=== PATIENT | female | born 1965 | race Caucasian/White ===

== ENCOUNTER → 2016-08-18 | Outpatient (CLI) | payer OTHER ==
[~2016-08-18] MED LIST: CONJ0.453 PO; FLUT27.5 NAE; MULT-506 PO; OLOP0.6S NAE
--- NOTE | 2016-08-18 13:59 | MAMMOGRAPHY REPORT ---
BILATERAL DIGITAL DIAGNOSTIC MAMMOGRAM TOMOSYNTHESIS WITH CAD: 08/18/2016 CLINICAL HISTORY: Interval follow-up of left breast calcifications. TECHNIQUE: Breast tomosynthesis in addition to standard 2D mammography was performed. Current study was also evaluated with a Computer Aided Detection (CAD) system. Bilateral CC and MLO 2-D and franci synthesis images and spot magnification left CC and ML views were obtained. COMPARISON: Comparison is made to exams dated: 11/13/2014 mammogram, 10/31/2014 mammogram, 10/30/2013 m ammogram, 09/27/2012 mammogram, 09/22/2011 mammogram, and 07/29/2010 mammogram - [facility]. BREAST COMPOSITION: The tissue of both breasts is heterogeneously dense, which may obscure small ma sses. FINDINGS: Spot magnification views of the left breast demonstrate a small 2 mm cluster of faint daria cifications in the left lateral breast, best seen on the cc view. The calcifications are stable com pared to spot magnification views dated November 2014, and were also present on prior exams including t he 2012 exam. Given the long-term stability, the calcifications are considered benign. The remainder of both breasts are stable compared to prior exams, without suspicious masses, calcifi cations, or areas of architectural distortion noted. IMPRESSION: ACR BI-RADS CATEGORY 2: BENIGN Small cluster of calcifications in the left lateral breast is stable dating back to 2012, and is con sidered benign. There is no mammographic evidence of malignancy in either breast. A 1 year screenin g mammogram is recommended. The patient has been verbally notified of the results. Approximately 10% of breast cancers are not detected with mammography. A negative mammographic repor t should not delay biopsy if a clinically suggestive mass is present. Purnima Galvez M.D. ah/:08/18/2016 11:36:56 Edging Catcher: Jessy LANDA(R)(M), [facility] letter sent: Normal 1/2 BI-RADS Code: ACR BI-RADS Category 2: Benign
== END | disposition home or self-care (01) ==
LOC: C.MAMM 09:11
PROVIDERS: ATTEND Family Medicine
DX: R92.1 Mammographic calcification found on diagnostic imaging of breast (principal)

== ENCOUNTER → 2017-02-01 | Outpatient (CLI) | payer OTHER ==
[2017-02-01 17:20] LABS: BASO % 1.7 %; BASO ABS # 0.11 K/uL (0-0.2); COMPLETE YES; EOS % 8.3 %; HEMATOCRIT 42.4 % (37-47); IG% 0.2 %; LYMPH % 34.6 %; LYMPH ABS # 2.25 K/uL (1.2-3.4); MEAN CELL VOLUME 93.2 fL (80-100); MEAN CORPUSCULAR HEMOGLOBIN 30.3 pg (25-34); MEAN CORPUSCULAR HGB CONC 32.5 g/dl (32-36); MEAN PLATELET VOLUME 12.1 fL (7.4-10.4); NEUT % 49.2 %; PLATELET COUNT 341 K/uL (130-400); RED BLOOD COUNT 4.55 M/uL (4.2-5.4)
[2017-02-01 17:28] LABS: ALT/SGPT 22 U/L (12-78); BLOOD UREA NITROGEN 14 mg/dl (7-18); BUN/CREATININE RATIO 14.2 (10-20); CALCIUM 9.1 mg/dl (8.5-10.1); CARBON DIOXIDE 28 mmol/L (21-32); CHLORIDE 107 mmol/L (98-107); CHOLESTEROL 238 mg/dl (0-200); GLUCOSE 85 mg/dl (70-99); MAGNESIUM 2.5 mg/dl (1.8-2.4); SODIUM 140 mmol/L (136-145); TRIGLYCERIDES 144 mg/dl (0-150); VERY LOW DENSITY LIPOPROT CALC 29 mg/dl
[2017-02-01 17:37] LABS: ALB/GLOB RATIO 1.1 (0.9-2); ALKALINE PHOSPHATASE 45 U/L (45-117); AST/SGOT 13 U/L (15-37); CHOLESTEROL/HDL RATIO 3.4; HDL CHOLESTEROL 70 mg/dl; LDL CHOLESTEROL CALCULATED 139 mg/dl
[2017-02-03 16:17] LABS: QUANTIF TB AG-NIL <0.00 IU/ML; QUANTIFERON NIL 0.08 IU/ML
--- NOTE | 2017-02-07 10:35 | CODING QUERY MEDICAL NECESSITY ---
CQSUPPORTING DIAGNOSIS NEEDED A supporting diagnosis is required for the test/procedure performed on this patient in order for us to be reimbursed by the patient's insurance. Please provide a supporting diagnosis for the following test/procedure listed below next to the test name along with your signature. *If there is no additional diagnosis for this patient that would support the following test/procedure please document that below next to the test/procedure. Test(s)/Procedure(s) that require a supporting diagnosis: DOS 02/01/17 VITAMIN D TEST Provider Signature: Date: Thank you Lea Barrett Health Information Management Once completed, please kindly fax back to [phone] For questions please call [phone]
== END | disposition home or self-care (01) ==
LOC: C.LABBC 14:48
PROVIDERS: ATTEND Nurse Practitioner Adult Health
DX: Z00.00 Encounter for general adult medical examination without abnormal findings (principal); R53.83 Other fatigue

== ENCOUNTER → 2017-06-21 | Outpatient (CLI) | payer OTHER ==
--- NOTE | 2017-06-21 21:00 | DIAGNOSTIC IMAGING REPORT ---
CERVICAL WITHOUT CONTRAST CLINICAL HISTORY: 51 years-old Female presenting with chronic neck pain, cervical radiculopathy for 2 years, hands, arms, and wrist falling asleep left greater than right. TECHNIQUE: Multisequence, multiplanar MR imaging of the cervical spine was performed without the use of intravenous contrast. IV contrast: None. COMPARISON: None. FINDINGS: Localizer images: Unremarkable. Normal cervical lordosis. Vertebral bodies maintain normal height, alignment, and bone marrow signal intensity. Intervertebral disc desiccation noted diffusely in the cervical spine with accompanying disc osteophyte complexes at nearly every level to varying degrees. Degenerative changes further detailed below: C2-3 no significant neural foraminal or spinal canal stenosis. C3-4: Left uncovertebral hypertrophy and disc osteophyte complex result in mild left neural foraminal narrowing. No significant spinal canal narrowing. C4-5: No significant neural foraminal or spinal canal narrowing. C5-6: Disc osteophyte complex and bilateral uncovertebral hypertrophy result in moderate bilateral neural foraminal narrowing. Mild effacement of the ventral thecal sac without evidence of contouring of the spinal cord. C6-7: Disc osteophyte complex and uncovertebral hypertrophy result in moderate bilateral neural foraminal narrowing and mild effacement of the ventral thecal sac without evidence of contouring of the spinal cord. C7-T1: No significant neural foraminal or spinal canal narrowing. Cervical spinal cord maintains normal morphology and signal intensity. Craniocervical junction normal. No epidural collection. Paraspinal soft tissues remarkable for an 11 mm T2 hyperintense lesion in the region of the right lobe of the thyroid, possibly colloid cyst. No paraspinal muscular edema. IMPRESSION: 1. Multilevel degenerative changes of the cervical spine with varying degrees of neural foraminal narrowing most significant at C5-6 and C6-7, further detailed above. No significant spinal canal stenosis. 2. 11 mm T2 hyperintense lesion in the region of the right lobe of the thyroid, possibly colloid cyst. If there is clinical concern, further evaluation with ultrasound to be obtained on a nonurgent basis. Electronically signed by: Adithya Tate M.D. 06/21/2017 8:59 PM Dictated Date/Time: 06/21/2017 8:52 PM
== END | disposition home or self-care (01) ==
LOC: C.MRI 19:32
PROVIDERS: ATTEND Nurse Practitioner Adult Health
DX: M54.12 Radiculopathy, cervical region (principal); R93.8 Abnormal findings on diagnostic imaging of other specified body structures

== ENCOUNTER 2017-07-08 18:51 | Emergency (ER) | payer OTHER ==
[~2017-07-08] VITALS: Ht 162.6 cm; Wt 60.5 kg
[2017-07-08 18:59] VITALS: TEMP 36.3; Ht 162.6 cm; Wt 60.5 kg
[2017-07-08] MEDS ORDERED: AMOX875T PO (19:24)
--- NOTE | 2017-07-08 19:25 | EMERGENCY ROOM VISIT NOTE ---
History First contact with patient: 19:03 Chief Complaint: BITE Stated Complaint: CAT BITE R EAR History of Present Illness The patient is a 51 year old female who presents to the Emergency Room with complaints of a Bite to her right ear. The patient reports that she was petting the neighbors cat when the cat became spooked and bit her right ear. She states that the cat was otherwise acting very normally. She believes the cat's vaccinations are up-to-date. She cleaned the cut with alcohol and applied antibiotic ointment. She states her tetanus is up-to-date. She reports pain at the site of the bite rated an 8/10. Review of Systems A complete 10 point review of systems was reviewed with the patient with pertinent positives and negatives as per history of present illness. All else were negative. Social History Smoking Status: Never Smoker Current/Historical Medications Scheduled Amoxicillin & Pot Clavulanate (Augmentin 875-125 mg), 1 TAB PO BID Fluticasone Furoate (Veramyst), 2 SPRY TOBY QAM Multivitamin (Multivitamin), 1 TAB PO QAM Olopatadine Hcl (Nasal) (Patanase), 2 SPRY TOBY QAM Physical Exam Vital Signs Date Time Temp Pulse Resp B/P (MAP) Pulse Ox O2 Delivery O2 Flow Rate FiO2 07/08/17 19:37 65 18 110/74 99 07/08/17 18:59 36.3 68 18 115/76 99 Room Air Physical Exam VITALS: Vitals are noted on the nurse's note and reviewed by myself. Vital signs stable. GENERAL: This is a 51-year-old female, in no acute distress, nondiaphoretic, well-developed well-nourished. SKIN: There is a small, 0.5 cm non-gaping laceration to the right pinna. NEURO: Patient was alert and oriented to person place and time. Medical Decision & Procedures Medical Decision The patient was evaluated as above. She has a small superficial laceration secondary to a cat bite of the right ear. The patient will be placed on Augmentin to prevent infection. She was advised to take probiotics with this and take it with food to prevent GI symptoms. Wound care instructions were discussed with the patient. There is no concern for rabies. Her tetanus is up- to-date. She verbalized understanding and was discharged home in good condition. Medication Reconcilliation Current Medication List: was personally reviewed by me Blood Pressure Screening Patient's blood pressure: Normal blood pressure Impression Primary Impression: Cat bite Departure Information Dispostion Home / Self-Care Condition GOOD Prescriptions Amoxicillin & Pot Clavulanate (Augmentin 875-125 mg) 1 Tab Tab 1 TAB PO BID for 5 Days, #10 TAB Prov: Xochitl Nickerson .AXEL 07/08/17 Referrals Upendra. Barraza M.D. (PCP) Patient Instructions My [facility] Additional Instructions You were prescribed Augmentin to be taken twice daily as prescribed. This is an antibiotic. All antibiotics have the potential to cause diarrhea. Stop this medication and contact a medical provider if you were to develop any significant adverse side effects including: wheezing, shortness of breath, passing out, vomiting, or a diffuse rash. Always take antibiotics as directed and COMPLETE the ENTIRE course regardless of the improvement of your symptoms. Proper wound care is essential for adequate wound healing and infection prevention. You can shower and clean the wound with soap and water. Do not scour over the wound, pat dry with a towel. Do not submerse the wound (i.e. bathe or dish wash) until the wound has fully healed. You can use an antibiotic ointment with a dressing over the wound for the next 3-4 days. After this time you may leave the wound dry and open to the air. For pain control, you can use the following [id number] medicines (if >12 yo): - Regular strength (325mg/tab) Tylenol (acetaminophen) 2 tabs every 4-6 hours as needed. Do not exceed 12 tablets in a 24 hour period. Avoid taking more than 4 grams (4000 mg) of Tylenol per day. This includes any other sources of acetaminophen you may take on a regular basis. - Regular strength (200 mg/tab) Advil (ibuprofen) 1-2 tabs every 4-6 hours as needed. Do not exceed a dose of 3200 mg per day. Return here for any signs of worsening infection, such as increasing redness, increasing swelling, foul drainage from the wound or fevers. Problem Qualifiers Primary Impression: Cat bite Encounter type: initial encounter Qualified Codes: W55.01XA - Bitten by cat , initial encounter
[2017-07-08 19:37] VITALS: BP 110/74; PULSE 65; O2SAT 99
== END 2017-07-08 19:39 | disposition home or self-care (01) ==
LOC: C.EDB 18:52 → C.EDD 19:39
DX: S01.351A Open bite of right ear, initial encounter (principal); W55.01XA Bitten by cat, initial encounter

== ENCOUNTER 2017-07-11 16:30 | Emergency (ER) | payer OTHER ==
[~2017-07-11] VITALS: Ht 162.6 cm; Wt 59.2 kg
[~2017-07-11 16:30] MED LIST changes: +AMOX875T PO; -CONJ0.453 PO
[2017-07-11 16:42] VITALS: PULSE 67; TEMP 36.7; O2SAT 98; Ht 162.6 cm; Wt 59.2 kg
[2017-07-11] MEDS ORDERED: RABIES VACCINE (IMOVAX) HUMAN DIPL CELL 2.5 INTER.UNIT/ML SYR IM. ONE (17:15)
[2017-07-11] MEDS ORDERED: RABIES IMMUNE GLOBULIN (HUMAN) 150 INTER.UNIT/ML 2 ML VIAL IM. ONE (17:15)
[2017-07-11] MEDS ORDERED: FLUT0.15 NAE (17:18)
[2017-07-11] MEDS ORDERED: AZEL0.15 NAE (17:19)
--- NOTE | 2017-07-11 17:38 | EMERGENCY ROOM VISIT NOTE ---
ED Visit Note First contact with patient: 16:45 CHIEF COMPLAINT: Need rabies shots HISTORY OF PRESENT ILLNESS: Patient is a 51-year-old white female who returns to the Emergency Department as directed by the Department of Health for post exposure rabies prophylaxis. Patient was potentially exposed to rabies when she was bitten by what she thought was her neighbor's cat on July 08. She states that she thought it was her neighbor's cat, Randy. She was sitting on her porch, petting the cat, when he became spooked, and bit her on the right ear. She was seen here that day, and placed on Augmentin which she has been taking. She has been performing wound care as outlined reports that her right ear is healing well. She did speak with the neighbor, and had several conversations over the last couple of days, and the neighbor now reports that there is a very similar appearing cat in the neighborhood, and it is possible that the cat that bit the patient was not Randy. Patient was contacted by the Department of Health today and related this information to them. They therefore stated that she could not be certain of the cat that bit her she should come to the emergency department for post exposure rabies prophylaxis. REVIEW OF SYSTEMS: Review of systems as per HPI. All other systems reviewed were negative. At least 6 systems reviewed. PMH: Electronic medical records are reviewed and summarized as above/below. See Problem List. Her tetanus is up-to-date. SOCIAL HISTORY: Patient lives at home. Nonsmoker. PHYSICAL EXAM: Vital Signs: Reviewed Nurse's notes. HEAD: Atraumatic, without temporal or scalp tenderness. EYES: PERRL, EOMI, no discharge or injection. SKIN: Patient has a healing scratch in the right ear, without. NEUROLOGICAL: Alert and cooperative. Sensory and motor functions grossly intact. EMERGENCY DEPARTMENT COURSE: Patient was given Imovax 2.5 international units IM , and rabies immune globulin 1180 international units IM. The site on the ear was not amenable to the immune globulin injection. She was observed in the emergency department after the injections, without adverse reaction, and discharged to home. She will continue local wound care measures, and was encouraged to finish the Augmentin as previously prescribed. She will return to the emergency department for the remainder of her rabies vaccinations, sooner for any problems or concerns. Medication reconciliation: I attest that I have personally reviewed the patient' s current medication list. Blood pressure screening : Patient was found to have normal blood pressure on screening and does not require follow-up. Problem List Medical Problems: (1) Cat bite Status: Resolved Current/Historical Medications Scheduled Amoxicillin & Pot Clavulanate (Augmentin 875-125 mg), 1 TAB PO BID Azelastine Hcl (Astepro), 2 SPRY TOBY BID Fluticasone Furoate (Veramyst), 2 SPRY TOBY QAM Multivitamin (Multivitamin), 1 TAB PO QAM Allergies Coded Allergies: NO KNOWN DRUG ALLERGIES (Verified Allergy, Unknown, ., 05/06/16) Shellfish (Verified Allergy, Unknown, GI UPSET, 05/06/16) Uncoded Allergies: DUST MITES (Allergy, Unknown, ., 05/03/16) Vital Signs Date Time Temp Pulse Resp B/P (MAP) Pulse Ox O2 Delivery O2 Flow Rate FiO2 07/11/17 18:27 18 120/77 Room Air 07/11/17 16:42 36.7 67 20 128/66 98 Room Air Medications Administered Medications (Trade) Dose Ordered Sig/Barbara Route Start Time Stop Time Status Last Admin Dose Admin Rabies Immune Globulin (Imogam Rabies Inj) 1,180 interunit ONCE ONCE IM. 07/11/17 17:15 07/11/17 17:16 DC 07/11/17 17:49 1,180 INTERUNIT Rabies Vaccine Human Diploid Cell (Imovax Rabies) 2.5 interunit ONCE ONCE IM. 07/11/17 17:15 07/11/17 17:16 DC 07/11/17 17:45 2.5 INTERUNIT Departure Information Impression Primary Impression: Need for prophylactic vaccination against rabies Referrals Nuria Logan C.R.NOpalPOpal (PCP) Patient Instructions My [facility] Additional Instructions Continue Augmentin and wound care measures to the right ear as previously discussed. Return to the emergency department on 07/14, 07/18 and 07/25 for the remainder of your vaccinations, sooner for any problems or concerns.
[2017-07-11 18:27] VITALS: BP 120/77
== END 2017-07-11 18:31 | disposition home or self-care (01) ==
LOC: C.EDB 16:31 → C.EDD 18:31
DX: Z23 Encounter for immunization (principal); Z20.3 Contact with and (suspected) exposure to rabies; Z79.899 Other long term (current) drug therapy; Z91.018 Allergy to other foods

== ENCOUNTER 2017-07-14 13:56 | Emergency (ER) | payer OTHER ==
[~2017-07-14] VITALS: Ht 162.6 cm; Wt 59.3 kg
[~2017-07-14 13:56] MED LIST changes: -FLUC150T PO
[2017-07-14 14:03] VITALS: TEMP 36.7; Ht 162.6 cm; Wt 59.3 kg
--- NOTE | 2017-07-14 14:10 | EMERGENCY ROOM VISIT NOTE ---
ED Visit Note First contact with patient: 14:09 CHIEF COMPLAINT: Rabies prophylaxis HISTORY OF PRESENT ILLNESS: This 51-year-old female patient presents to the emergency department for their second rabies shot. The patient has not had any complications from the previous injections. When asked about any other complaints, the patient states she has been feeling generally fatigued for the past few weeks, and noticed over the past few days that she has had black stools. She denies any nausea or vomiting, abdominal pain, diarrhea or constipation. She denies any previous history of GI bleed. She does state that she has been taking meloxicam daily for the past few weeks. REVIEW OF SYSTEMS: A 6 system review of systems was completed with positives and pertinent negatives listed in the HPI. ALLERGIES: Reviewed in chart MEDICATIONS: Reviewed in chart PMH: Unchanged from previous visit. PHYSICAL EXAM: Vital Signs: Reviewed Nurse's notes, vital signs stable. GENERAL : Pleasant and cooperative, in no acute distress, well-developed, well- nourished. HEAD: Atraumatic, without temporal or scalp tenderness. EYES: PERRLA, EOMI, no discharge or injection. SKIN: Normal. NEUROLOGICAL: Alert and cooperative. Sensory and motor functions grossly intact. HEART: Regular rate and rhythm, no murmurs, gallops, rubs. Normal peripheral perfusion. No edema. LUNGS: Clear to auscultation bilaterally with no wheezes, rhonchi, crackles, stridor. Equal expansion bilaterally. ABDOMEN: Soft, nontender, nondistended. No palpable masses or HSM. Normal bowel sounds in all 4 quadrants. RECTAL EXAM: Digital rectal exam performed with nurse automated equipment engineer technician at the bedside. Normal tone. No palpable masses or tenderness. Stool is dark brown in color, guaiac negative. EMERGENCY DEPARTMENT COURSE: I examined the patient. Given the patient's complaint of fatigue and black stools, basic labs were obtained and a digital rectal exam was performed to test stool for blood. Stool is guaiac negative. She is not anemic and has no electrolyte abnormalities on blood work. The patient was given Imovax 1ml IM. The patient was observed for 20 minutes with no reaction. The patient was instructed on her return date for her third rabies vaccination. The patient was also instructed to follow up with her primary care provider if she continues to have fatigue, she verbalized understanding. The patient was discharged home in stable condition and ambulatory. Problem List Medical Problems: (1) Cat bite Status: Resolved Current/Historical Medications Scheduled Azelastine Hcl (Astepro), 1 SPRY TOBY QAM Fluticasone Furoate (Veramyst), 1 SPRY TOBY QAM Multivitamin (Multivitamin), 1 TAB PO QAM Allergies Coded Allergies: NO KNOWN DRUG ALLERGIES (Verified Allergy, Unknown, ., 07/14/17) Shellfish (Verified Allergy, Unknown, GI UPSET, 07/14/17) Uncoded Allergies: DUST MITES (Allergy, Unknown, ., 05/03/16) Vital Signs Date Time Temp Pulse Resp B/P (MAP) Pulse Ox O2 Delivery O2 Flow Rate FiO2 07/14/17 16:24 53 94/74 100 07/14/17 14:03 36.7 66 18 113/74 99 Room Air Laboratory Results 07/14/17 13:35 Red Blood Count 4.57, Mean Corpuscular Volume 93.0, Mean Corpuscular Hemoglobin 33.3, Mean Corpuscular Hemoglobin Concent 35.8, Mean Platelet Volume 11.1, Neutrophils (%) (Auto) 48.1, Lymphocytes (%) (Auto) 30.7, Monocytes (%) (Auto) 10.0, Eosinophils (%) (Auto) 9.5, Basophils (%) (Auto) 1.5, Neutrophils # (Auto ) 3.19, Lymphocytes # (Auto) 2.03, Monocytes # (Auto) 0.66, Eosinophils # (Auto ) 0.63, Basophils # (Auto) 0.10 07/14/17 13:35 Test 07/14/17 13:35 White Blood Count 6.62 K/uL (4.8-10.8) Red Blood Count 4.57 M/uL (4.2-5.4) Hemoglobin 15.2 g/dL (12.0-16.0) Hematocrit 42.5 % (37-47) Mean Corpuscular Volume 93.0 fL (80-100) Mean Corpuscular Hemoglobin 33.3 pg (25-34) Mean Corpuscular Hemoglobin Concent 35.8 g/dl (32-36) Platelet Count 332 K/uL (130-400) Mean Platelet Volume 11.1 fL (7.4-10.4) Neutrophils (%) (Auto) 48.1 % Lymphocytes (%) (Auto) 30.7 % Monocytes (%) (Auto) 10.0 % Eosinophils (%) (Auto) 9.5 % Basophils (%) (Auto) 1.5 % Neutrophils # (Auto) 3.19 K/uL (1.4-6.5) Lymphocytes # (Auto) 2.03 K/uL (1.2-3.4) Monocytes # (Auto) 0.66 K/uL (0.11-0.59) Eosinophils # (Auto) 0.63 K/uL (0-0.5) Basophils # (Auto) 0.10 K/uL (0-0.2) RDW Standard Deviation 41.6 fL (36.4-46.3) RDW Coefficient of Variation 12.4 % (11.5-14.5) Immature Granulocyte % (Auto) 0.2 % Immature Granulocyte # (Auto) 0.01 K/uL (0.00-0.02) Anion Gap 5.0 mmol/L (3-11) Est Creatinine Clear Calc Drug Dose 67.6 ml/min Estimated GFR () 91.3 Estimated GFR (Non- 78.8 BUN/Creatinine Ratio 14.0 (10-20) Calcium Level 9.4 mg/dl (8.5-10.1) Medications Administered Medications (Trade) Dose Ordered Sig/Barbara Route Start Time Stop Time Status Last Admin Dose Admin Rabies Vaccine Human Diploid Cell (Imovax Rabies) 2.5 interunit ONCE ONCE IM. 07/14/17 15:30 07/14/17 15:31 DC 07/14/17 15:47 2.5 INTERUNIT Departure Information Impression Primary Impression: Encounter for repeat administration of rabies vaccination Dispostion Home / Self-Care Condition GOOD Referrals Nuria Logan C.R.N.P. (PCP) Patient Instructions My [facility], Rabies Additional Instructions Continue vaccination schedule as directed. Your next visit should be 07/18. Return for any complications.
[2017-07-14 14:58] LABS: BASO % 1.5 %; COMPLETE YES; EOS % 9.5 %; HEMATOCRIT 42.5 % (37-47); IG% 0.2 %; LYMPH % 30.7 %; LYMPH ABS # 2.03 K/uL (1.2-3.4); MEAN CORPUSCULAR HEMOGLOBIN 33.3 pg (25-34); MEAN CORPUSCULAR HGB CONC 35.8 g/dl (32-36); MEAN PLATELET VOLUME 11.1 fL (7.4-10.4); NEUT % 48.1 %; PLATELET COUNT 332 K/uL (130-400); RED BLOOD COUNT 4.57 M/uL (4.2-5.4); WHITE BLOOD COUNT 6.62 K/uL (4.8-10.8)
[2017-07-14 15:21] LABS: CALCIUM 9.4 mg/dl (8.5-10.1); CREATININE 0.86 mg/dl (0.60-1.20)
[2017-07-14] MEDS ORDERED: RABIES VACCINE (IMOVAX) HUMAN DIPL CELL 2.5 INTER.UNIT/ML SYR IM. ONE (15:30)
[2017-07-14 16:24] VITALS: BP 94/74; PULSE 53; O2SAT 100
== END 2017-07-14 16:20 | disposition home or self-care (01) ==
LOC: C.EDB 13:57 → C.EDD 16:20
DX: Z23 Encounter for immunization (principal); Z20.3 Contact with and (suspected) exposure to rabies; Z79.899 Other long term (current) drug therapy

== ENCOUNTER → 2017-07-14 | Outpatient (CLI) | payer OTHER ==
[~2017-07-14] MED LIST changes: +AZEL0.15 NAE; +FLUC150T PO; -OLOP0.6S NAE
--- NOTE | 2017-07-14 14:03 | DIAGNOSTIC IMAGING REPORT ---
ULTRASOUND OF THE THYROID GLAND CLINICAL HISTORY: Thyroid nodule. COMPARISON STUDY: MRI of the cervical spine dated 06/21/2017. TECHNIQUE: Real-time, grayscale, and color flow sonography of the thyroid gland is performed utilizing a high-frequency linear transducer. Images are reviewed in the transverse and longitudinal planes. FINDINGS: Right lobe: The right lobe of the thyroid gland is normal in size and homogeneous in echotexture, measuring 4.3 x 1.4 x 1.3 cm. A simple cystic nodule in the lower pole measures 1.5 x 0.9 x 1.0 cm. An adjacent honeycomb nodule containing small cystic foci in the midpole measures 0.7 x 0.8 x 0.7 cm. Internal flow is seen on color imaging. Left lobe: The left lobe of the thyroid gland is normal in size and homogeneous in echotexture, measuring 4.1 x 1.0 x 1.2 cm. A 4 mm colloid cyst is seen in the midpole. Isthmus: The thyroid isthmus is normal in appearance and measures 0.3 cm in AP diameter. IMPRESSION: Low suspicion right-sided thyroid nodules as above. These do not meet sonographic criteria for fine-needle aspiration. 12 month sonographic follow-up is suggested. Electronically signed by: Jose Donovan M.D. 07/14/2017 2:02 PM Dictated Date/Time: 07/14/2017 1:59 PM
== END | disposition home or self-care (01) ==
LOC: C.ULTR 13:16
PROVIDERS: ATTEND Nurse Practitioner Adult Health
DX: E04.1 Nontoxic single thyroid nodule (principal)

== ENCOUNTER 2017-07-18 12:34 | Emergency (ER) | payer OTHER ==
[~2017-07-18] VITALS: Ht 162.6 cm; Wt 59.1 kg
[~2017-07-18 12:34] MED LIST changes: -AMOX875T PO
[2017-07-18 12:44] VITALS: TEMP 36.7; Ht 162.6 cm; Wt 59.1 kg
[2017-07-18] MEDS ORDERED: RABIES VACCINE (IMOVAX) HUMAN DIPL CELL 2.5 INTER.UNIT/ML SYR IM. ONE (13:00)
[2017-07-18] MEDS ORDERED: FLUC150T PO (13:03)
--- NOTE | 2017-07-18 13:03 | EMERGENCY ROOM VISIT NOTE ---
ED Visit Note First contact with patient: 12:48 CHIEF COMPLAINT: Rabies Shot #3 HISTORY OF PRESENT ILLNESS: Patient is a 51-year-old female who presents to the emergency department as advised for her third rabies vaccination. She was potentially exposed when she was bitten by a cat last week. She has finished the Augmentin. She reports that she is beginning to experience some symptoms that are concerning for a yeast infection and is requesting Diflucan. She denies any problems with her previous injections. REVIEW OF SYSTEMS: Review of systems as per HPI. All other systems reviewed were negative. At least 3 systems reviewed. PMH: Reviewed and unchanged from prior visit. SOCIAL HISTORY: Patient lives at home. PHYSICAL EXAM: Vital Signs: Reviewed Nurse's notes. HEAD: Atraumatic, without temporal or scalp tenderness. EYES: PERRL, EOMI, no discharge or injection. SKIN: Normal. NEUROLOGICAL: Alert and cooperative. Sensory and motor functions grossly intact. EMERGENCY DEPARTMENT COURSE: Patient was given Imovax IM, observed and then discharged. She was given a prescription for Diflucan. She was advised to follow-up with her primary care provider or spot worker as needed, and to return to the emergency department for her final vaccination Tuesday. Problem List Medical Problems: (1) Cat bite Status: Resolved Current/Historical Medications Scheduled Azelastine Hcl (Astepro), 1 SPRY TOBY QAM Fluconazole (Diflucan), 150 MG PO DAILY Fluticasone Furoate (Veramyst), 1 SPRY TOBY QAM Multivitamin (Multivitamin), 1 TAB PO QAM Allergies Coded Allergies: NO KNOWN DRUG ALLERGIES (Verified Allergy, Unknown, ., 07/14/17) Shellfish (Verified Allergy, Unknown, GI UPSET, 07/14/17) Uncoded Allergies: DUST MITES (Allergy, Unknown, ., 05/03/16) Vital Signs Date Time Temp Pulse Resp B/P (MAP) Pulse Ox O2 Delivery O2 Flow Rate FiO2 07/18/17 13:25 56 18 108/72 99 07/18/17 12:44 36.7 57 16 109/68 99 Room Air Medications Administered Medications (Trade) Dose Ordered Sig/Barbara Route Start Time Stop Time Status Last Admin Dose Admin Rabies Vaccine Human Diploid Cell (Imovax Rabies) 2.5 interunit ONCE ONCE IM. 07/18/17 13:00 07/18/17 13:01 DC 07/18/17 13:08 2.5 INTERUNIT Departure Information Impression Primary Impression: Rabies, need for prophylactic vaccination against Prescriptions Fluconazole (DIFLUCAN) 150 Mg Tab 150 MG PO DAILY, #2 TAB Take one tablet x one dose. May repeat in 3 days if symptoms persist. Prov: Marietta Joseph PA 07/18/17 Referrals Nuria Logan C.R.N.P. (PCP) Patient Instructions My [facility] Additional Instructions Return to the ED next Tuesday for your final vaccination, sooner for problems or concerns.
[2017-07-18 13:25] VITALS: BP 108/72; PULSE 56; O2SAT 99
== END 2017-07-18 13:26 | disposition home or self-care (01) ==
LOC: C.EDB 12:35 → C.EDD 13:26
DX: Z23 Encounter for immunization (principal); Z20.3 Contact with and (suspected) exposure to rabies

== ENCOUNTER 2017-07-25 13:18 | Emergency (ER) | payer OTHER ==
[~2017-07-25] VITALS: Ht 162.6 cm; Wt 58.3 kg
[~2017-07-25 13:18] MED LIST changes: +FLUC150T PO
[2017-07-25 13:21] VITALS: TEMP 36.4; Ht 162.6 cm; Wt 58.3 kg
--- NOTE | 2017-07-25 13:32 | EMERGENCY ROOM VISIT NOTE ---
ED Visit Note First contact with patient: 13:24 CHIEF COMPLAINT: Rabies prophylaxis HISTORY OF PRESENT ILLNESS: This 51-year-old female patient presents to the emergency department by private vehicle for their fourth and final rabies shot. The patient has not had any complications from the previous injections. They deny any other complaints. She denies any headaches, neck pain, chest pain, shortness of breath, abdominal pain, nausea or vomiting, urinary symptoms or rash. REVIEW OF SYSTEMS: A 6 system review of systems was completed with positives and pertinent negatives listed in the HPI. ALLERGIES: Reviewed in chart MEDICATIONS: Reviewed in chart PMH: Unchanged from previous visit. PHYSICAL EXAM: Vital Signs: Reviewed Nurse's notes, vital signs stable. GENERAL : Pleasant and cooperative, in no acute distress, well-developed, well- nourished. HEAD: Atraumatic, without temporal or scalp tenderness. EYES: PERRLA, EOMI, no discharge or injection. SKIN: Normal. NEUROLOGICAL: Alert and cooperative. Sensory and motor functions grossly intact. EMERGENCY DEPARTMENT COURSE: I examined the patient. The patient was given Imovax 1ml IM. The patient was observed for 20 minutes with no reaction. The patient was discharged home in stable condition. Problem List Medical Problems: (1) Cat bite Status: Resolved Current/Historical Medications Scheduled Azelastine Hcl (Astepro), 1 SPRY TOBY QAM Fluticasone Furoate (Flonase Sensimist), 1 SPRAY TOBY QAM Multivitamin (Multivitamin), 1 TAB PO QAM Allergies Coded Allergies: NO KNOWN DRUG ALLERGIES (Verified Allergy, Unknown, ., 07/25/17) Shellfish (Verified Allergy, Unknown, GI UPSET, 07/25/17) Uncoded Allergies: DUST MITES (Allergy, Unknown, ., 05/03/16) Vital Signs Date Time Temp Pulse Resp B/P (MAP) Pulse Ox O2 Delivery O2 Flow Rate FiO2 07/25/17 14:23 56 16 111/56 96 Room Air 07/25/17 13:21 36.4 59 18 116/70 99 Room Air Medications Administered Medications (Trade) Dose Ordered Sig/Barbara Route Start Time Stop Time Status Last Admin Dose Admin Rabies Vaccine Human Diploid Cell (Imovax Rabies) 2.5 interunit ONCE ONCE IM. 07/25/17 13:45 07/25/17 13:46 DC 07/25/17 13:41 2.5 INTERUNIT Departure Information Impression Primary Impression: Encounter for repeat administration of rabies vaccination Dispostion Home / Self-Care Condition GOOD Referrals Nuria Logan C.R.N.P. (PCP) Patient Instructions My [facility], Rabies Additional Instructions Your rabies vaccination process is now complete. Follow-up with your PCP as needed.
[2017-07-25] MEDS ORDERED: FLUT27.53 NAE (13:38)
[2017-07-25] MEDS ORDERED: RABIES VACCINE (IMOVAX) HUMAN DIPL CELL 2.5 INTER.UNIT/ML SYR IM. ONE (13:45)
[2017-07-25 14:23] VITALS: BP 111/56; PULSE 56; O2SAT 96
== END 2017-07-25 14:24 | disposition home or self-care (01) ==
LOC: C.EDB 13:19 → C.EDD 14:24
DX: Z23 Encounter for immunization (principal); Z20.3 Contact with and (suspected) exposure to rabies; Z79.899 Other long term (current) drug therapy

== ENCOUNTER → 2017-11-14 | Day surgery (SDC) | payer OTHER ==
[2017-11-01 11:55] VITALS: Ht 162.6 cm; Wt 55.5 kg
[~2017-11-14] VITALS: Ht 162.6 cm; Wt 55.5 kg
[~2017-11-14] MED LIST changes: -FLUC150T PO; -FLUT27.5 NAE; +FLUT27.53 NAE; +KETO0.0216 OP; +LIDOCAINE HCL 2% 2 ML VIAL (20MG/ML) ONE; +PROPOFOL IV EMULSION 10 MG/ML 20 ML VIAL IV ONE; +SODIUM CHLORIDE 0.9% 500ML 500 ML IV ONE
--- NOTE | 2017-11-14 09:39 | Endo History and Physical ---
History & Physical Date of Service: Nov 14, 2017. Chief Complaint: Screening Referring Physician: Nuria Logan History of Present Illness 52 yo CF who presents for screening colonoscopy. Past Medical History Arthritis, Depression Past Surgical History Hx Cardiac Surgery: No Hx Internal Defibrillator: No Hx Pacemaker: No Hx Abdominal Surgery: Yes (UTERINE FIBROID REMOVAL, D&C'S) Hx of Implantable Prosthesis: No Hx Post-Op Nausea and Vomiting: No Hx Cancer Surgery: Yes (BCC FROM LEG) Hx Thoracic Surgery: No Hx Orthopedic: Yes (LEFT KNEE ARTHROSCOPY) Hx Urinary Tract Surgery: No Family History IBD Social History Smoking Status: Never Smoker Hx Substance Use: No Hx Alcohol Use: Yes (1-2 DRINKS DAILY/WINE) Allergies Coded Allergies: NO KNOWN DRUG ALLERGIES (Verified Allergy, Unknown, ., 11/14/17) Shellfish (Verified Allergy, Unknown, GI UPSET, 11/14/17) Uncoded Allergies: DUST MITES (Allergy, Unknown, ., 05/03/16) Current Medications Reported Home Medications Medications Dose Route/Sig Max Daily Dose Days Date Category Zaditor 0.025% Oph (Ketotifen Fumarate (Ophth)) 0.025 % Suresh 1 Drop OP Q12H 11/14/17 Reported Flonase Sensimist (Fluticasone Furoate) 27.5 Mcg/Stover Tati 1 [place] TOBY QAM 07/25/17 Reported Astepro (Azelastine Hcl) 0.15 % Spr 1 [place] TOBY QAM 07/11/17 Reported Multivitamin (Multivitamins) Tab 1 Tab PO QAM 05/03/16 Reported Vital Signs Weight (Kilograms): 55.45 Height (Feet): 5 Height (Inches): 4 Date Time Temp Pulse Resp B/P (MAP) Pulse Ox O2 Delivery O2 Flow Rate FiO2 11/14/17 09:26 36.7 51 18 96/46 (63) 100 Room Air Physical Exam General Appearance: WD/WN, no apparent distress Respiratory/Chest: Auscultation: breath sounds normal Cardiovascular: Heart Auscultation: RRR Abdomen: Bowel Sounds: normal Inspection & Palpation: soft, non-distended, no tenderness, guarding & rebound Assessment and Plan Assessment: 52 yo CF who presents for screening colonoscopy. Plan: Proceed with colonoscopy.
--- NOTE | 2017-11-14 10:45 | Discharge Instructions ---
Endoscopy Patient Instructions Date / Procedure(s) Performed Nov 14, 2017. Colonoscopy Allergy Information Coded Allergies: NO KNOWN DRUG ALLERGIES (Verified Allergy, Unknown, ., 11/14/17) Shellfish (Verified Allergy, Unknown, GI UPSET, 11/14/17) Uncoded Allergies: DUST MITES (Allergy, Unknown, ., 05/03/16) Discharge Date / Findings Nov 14, 2017. Colon polyp Internal hemorrhoids Provider Instructions Activity Restrictions - No exercising or heavy lifting for 24 hours. - Do not drink alcohol the day of the procedure. - Do not drive a car or operate machinery until the day after the procedure. - Do not make any important decisions or sign important papers in 24 hours after the procedure. Following Day: - Return to full activity which may include returning to work/school. Diet Start your diet with liquids and light foods (jello, soup, juice, toast). Then eat your usual diet if not nauseated. Treatment For Common After Affects For mild abdominal pain, bloating, or excessive gas: - Rest - Eat lightly - Lie on right side Follow-Up Information Follow-up with CODEY RIOJAS as scheduled Anesthesia Information What You Should Know You have had a procedure that required some medicine to reduce anxiety and discomfort. This treatment is called moderate sedation. After receiving the treatment, you may be sleepy, but you will be able to breathe on your own. The effects of the treatment may last for several hours. Follow these instructions along with Activity/Diet recommendations noted above: * Do NOT do anything where dizziness or clumsiness would be dangerous. * Rest quietly at home today, then you can be up and about tomorrow. * Have a responsible person stay with you the rest of today. * You may have had an I.V. today. If so, you may take the dressing off later today. Recommendations Call your doctor if: * Trouble breathing * Continuous vomiting for more than 24 hours * Temperature above 101 degrees * Severe abdominal pain or bloating * Pain not relieved by pain medicine ordered * There is increased drainage or redness from any incision * A large amount of rectal bleeding greater than 2-3 tablespoons. (If you had a polyp/s removed or have hemorrhoids, a small amount of blood - from the rectum is to be expected.) * You have any unanswered questions or concerns. IN THE EVENT OF A SERIOUS EMERGENCY, GO TO THE NEAREST EMERGENCY ROOM Your discharge instructions were prepared by provider Jesus Ceja. Patient Instructions Signature Page Edna Porter Patient (or Guardian) Signature/Date: I have read and understand the instructions given to me by my caregivers. Caregiver/RN/Doctor Signature/Date: The above-named patient and/or guardian has received patient instructions on this date. + Original Patient Signature Page (only) stays with chart. Please make copy for patient.
--- NOTE | 2017-11-14 10:49 | GI REPORT ---
Procedure Date: 11/14/2017 9:36 AM Procedure: Colonoscopy Indications: Screening for colorectal malignant neoplasm Medicines: Monitored Anesthesia Care Complications: No immediate complications. Estimated Blood Loss: Estimated blood loss: none. Procedure: Pre-Anesthesia Assessment: - Prior to the procedure, a History and Physical was performed, and patient medications and allergies were reviewed. The patient's tolerance of previous anesthesia was also reviewed. The risks and benefits of the procedure and the sedation options and risks were discussed with the patient. All questions were answered, and informed consent was obtained. Prior Anticoagulants: The patient has taken no previous anticoagulant or antiplatelet agents. ASA Grade Assessment: II - A patient with mild systemic disease. After reviewing the risks and benefits, the patient was deemed in satisfactory condition to undergo the procedure. After I obtained informed consent, the scope was passed under direct vision. Throughout the procedure, the patient's blood pressure, pulse, and oxygen saturations were monitored continuously. The scope was introduced through the anus and advanced to the terminal ileum. The colonoscopy was performed without difficulty. The patient tolerated the procedure well. The quality of the bowel preparation was good. The terminal ileum, ileocecal valve, appendiceal orifice, and rectum were photographed. Findings: The perianal and digital rectal examinations were normal. A 4 mm polyp was found in the cecum. The polyp was sessile. The polyp was removed with a cold biopsy forceps. Resection and retrieval were complete. Non-bleeding internal hemorrhoids were found during retroflexion. The hemorrhoids were small. Impression: - One 4 mm polyp in the cecum, removed with a cold biopsy forceps. Resected and retrieved. - Non-bleeding internal hemorrhoids. Recommendation: - Resume previous diet. - Continue present medications. - Await pathology results. - Repeat colonoscopy for surveillance based on pathology results. - Return to primary care physician as previously scheduled. Jesus Ceja DO 11/14/2017 10:49:15 AM This report has been signed electronically. Note Initiated On: 11/14/2017 9:36 AM I attest to the content of the Intraoperative Record and orders documented therein, exceptions below
--- NOTE | 2017-11-14 11:03 | Anesthesiology Progress Note ---
Anesthesia Post Op Note Date & Time Nov 14, 2017 at 11:03 Vital Signs Pain Intensity: 0 Vital Signs Past 12 Hours Date Time Temp Pulse Resp B/P (MAP) Pulse Ox O2 Delivery O2 Flow Rate FiO2 11/14/17 10:39 60 16 80/42 (55) 97 Room Air 11/14/17 09:26 36.7 51 18 96/46 (63) 100 Room Air Notes Mental Status: alert / awake / arousable, participated in evaluation Pt Amnestic to Procedure: Yes Nausea / Vomiting: adequately controlled Pain: adequately controlled Airway Patency, RR, SpO2: stable & adequate BP & HR: stable & adequate Hydration State: stable & adequate Anesthetic Complications: no major complications apparent
[2017-11-14 11:24] VITALS: BP 94/52; PULSE 54; O2SAT 100
== END | disposition home or self-care (01) ==
LOC: C.GI 08:52
PROVIDERS: ATTEND Internal Medicine
DX: Z12.11 Encounter for screening for malignant neoplasm of colon (principal); D12.0 Benign neoplasm of cecum; K64.8 Other hemorrhoids; Z91.013 Allergy to seafood; Z79.899 Other long term (current) drug therapy

== ENCOUNTER → 2018-03-03 | Outpatient (CLI) | payer OTHER ==
[~2018-03-03] MED LIST changes: -LIDOCAINE HCL 2% 2 ML VIAL (20MG/ML) ONE; -PROPOFOL IV EMULSION 10 MG/ML 20 ML VIAL IV ONE; -SODIUM CHLORIDE 0.9% 500ML 500 ML IV ONE
[2018-03-03 14:10] LABS: BASO % 1.8 %; BASO ABS # 0.09 K/uL (0-0.2); EOS % 7.7 %; EOS ABS # 0.39 K/uL (0-0.5); HEMATOCRIT 40.6 % (37-47); HEMOGLOBIN 13.7 g/dL (12.0-16.0); LYMPH % 35.6 %; LYMPH ABS # 1.81 K/uL (1.2-3.4); MEAN CELL VOLUME 94.9 fL (80-100); MEAN CORPUSCULAR HGB CONC 33.7 g/dl (32-36); MEAN PLATELET VOLUME 12.1 fL (7.4-10.4); MONO % 8.8 %; MONO ABS # 0.45 K/uL (0.11-0.59); NEUT % 46.1 %; NEUT ABS # 2.35 K/uL (1.4-6.5); PLATELET COUNT 326 K/uL (130-400); RED CELL DISTRIBUTION WIDTH CV 12.5 % (11.5-14.5); RED CELL DISTRIBUTION WIDTH SD 43.3 fL (36.4-46.3); WHITE BLOOD COUNT 5.09 K/uL (4.8-10.8)
[2018-03-03 14:52] LABS: ALBUMIN 3.8 gm/dl (3.4-5.0); ALKALINE PHOSPHATASE 45 U/L (45-117); ALT/SGPT 22 U/L (12-78); AST/SGOT 18 U/L (15-37); BLOOD UREA NITROGEN 10 mg/dl (7-18); CALCIUM 9.2 mg/dl (8.5-10.1); CARBON DIOXIDE 28 mmol/L (21-32); CHOLESTEROL 233 mg/dl (0-200); CREATININE 0.95 mg/dl (0.60-1.20); GLUCOSE 82 mg/dl (70-99); LDL CHOLESTEROL CALCULATED 144 mg/dl; SODIUM 139 mmol/L (136-145); TOTAL PROTEIN 7.3 gm/dl (6.4-8.2)
== END | disposition home or self-care (01) ==
LOC: C.LABBC 10:11
PROVIDERS: ATTEND Nurse Practitioner Family
DX: Z13.1 Encounter for screening for diabetes mellitus (principal); Z13.220 Encounter for screening for lipoid disorders; E04.1 Nontoxic single thyroid nodule; Z92.29 Personal history of other drug therapy

== ENCOUNTER → 2018-03-03 | Outpatient (CLI) | payer OTHER | END | disposition home or self-care (01) | LOC: C.LAB 16:01 | PROVIDERS: ATTEND Nurse Practitioner Family | DX: Z91.89 Other specified personal risk factors, not elsewhere classified (principal) ==